=== PATIENT | male | born 1995 | race Caucasian/White ===

== ENCOUNTER 2016-11-04 13:09 | Emergency (ER) ==
[2016-11-04 13:12] VITALS: BP 152/91; TEMP 97.6; BMI 37.3
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
== END 2016-11-04 13:28 | disposition home or self-care (01) ==
LOC: ED 13:09
DX: L02.01 Cutaneous abscess of face (principal)
CPT/HCPCS: 99282

== ENCOUNTER 2016-12-18 22:31 | Emergency (ER) ==
[2016-12-18 22:45] VITALS: TEMP 99.9; BMI 35.6
[2016-12-18 23:03] VITALS: BP 155/95
--- NOTE | 2016-12-18 23:04 | ED.PDOC ---
General ED Provider: Dr. KATIE LUKE Chief Complaint: Dizziness Stated Complaint: Patient states that he has been dizzy for the past two weeks. worse tonight. The dizziness occurs when sitting or standing. Denies any fever or chills, headache behind eyes and at shinto areas. Time Seen by Physician: 23:02 Mode of Arrival: Wheelchair Information Source: Patient Exam Limitations: No limitations Primary Care Provider: VIKKI OTTO Nursing and Triage Documentation Reviewed and Agree: Yes Neurological Complaint Exam - Dizziness Complaint/Exam Last Known Well: 1 week Onset: Gradual Duration: min Symptoms Are: Still present Timing: Intermittent Initial Severity: Moderate Current Severity: Moderate Character: Reports: Head spinning, Lightheaded Aggravating: Reports: None Alleviating: Reports: None Associated Signs and Symptoms: Reports: Nausea, Visual changes. Denies: Vomiting, Short of air, Unsteady gait Cardiac Risk Factors: Reports: None CVA Risk Factors: Reports: None Related Surgical History: Reports: None JVD Present: No Carotid Bruit Present: No Rectal Heme Positive: No Glascow Coma Scale (see protocol): 15 Nystagmus Present: No Gag Reflex Present: No Meningeal Signs Positive: No Focal Weakness: Present: None Focal Sensory Loss: Present: None Gait: Normal Romberg Test Positive: No Babinski Sign: Negative Right, Negative Left Heel to Toe Normal: No Jovany-Hallpike Test Positive: No Differential Diagnoses: Dysrhythmia, Metabolic abnormalities, Vasovagal reaction Quality Indicator For Non-Traumatic Chest Pain/Syncope: EKG Performed Review of Systems - Review Of Systems Constitutional: Reports: No symptoms Eyes: Reports: No symptoms Ears, Nose, Mouth, Throat: Reports: No symptoms Respiratory: Reports: No symptoms Cardiac: Reports: No symptoms, Lightheadedness GI: Reports: No symptoms : Reports: No symptoms Musculoskeletal: Reports: No symptoms Skin: Reports: No symptoms Neurological: Reports: Anxiety Endocrine: Reports: No symptoms Hematologic/Lymphatic: Reports: No symptoms All Other Systems: Reviewed and Negative Past Medical History - Past Medical History Previously Healthy: Yes Endocrine: Reports: None Cardiovascular: Reports: Hypertension Respiratory: Reports: None Hematological: Reports: None Gastrointestinal: Reports: None Genitourinary: Reports: None Neuro/Psych: Reports: Anxiety, Depression Musculoskeletal: Reports: None Cancer: Reports: None - Surgical History General Surgical History: Reports: Tonsillectomy, Orthopedic (left knee break), Other (ear tubes) - Family History Family History: Reports: Unknown - Social History Smoking Status: Never smoker Hx Substance Use: No Alcohol Screening: Occasionally - Immunizations Tetanus Shot up to Date: Yes Physical Exam - Physical Exam Appearance: Ill-appearing, Obese Ill-appearing: Moderate Pain Distress: Severe Eyes: PHILIPPE, EOMI, Conjunctiva clear ENT: Ears normal, Nose normal, Oropharynx normal Neck: Supple Respiratory: Airway patent, Breath sounds clear, Breath sounds equal, Respirations nonlabored Cardiovascular: RRR, Pulses normal, No rub, No murmur GI/: Soft, Nontender, No masses, Bowel sounds normal, No Organomegaly Musculoskeletal: Normal strength, ROM intact, No edema, No calf tenderness Skin: Warm, Dry, Normal color Neurological: Sensation intact, Motor intact, Reflexes intact, Cranial nerves intact, Alert, Oriented Psychiatric: Anxious Interpretation - Radiology Interpretation Radiology Interpretation By: Radiologist Radiology Results: Negative Exam Interpreted: CT Scan (Head ) - EKG Interpretation Time of EKG #1: 00:15 Rate: Normal Rhythm: Sinus Ectopy: None [place]: NL Interpretation: non specific T wave abnormality Critical Care Note - Critical Care Note Total Time (mins): 0 Course - Course Hematology/Chemistry: 12/18/16 23:32 12/18/16 23:32 Orders, Labs, Meds: Lab Review 12/18/16 12/18/16 11:32 23:32 WBC 9.55 RBC 4.85 Hgb 14.9 Hct 39.8 L MCV 82.1 MCH 30.7 MCHC 37.4 H RDW Coeff of Ilana 13.9 Plt Count 228 Immature Gran % (Auto) 0.4 Neut % (Auto) 27.5 Lymph % (Auto) 63.4 H [place] % (Auto) 6.9 Eos % (Auto) 0.4 Baso % (Auto) 1.4 Immature Gran # (Auto) 0.0 Neut # 2.6 Lymph # 6.1 H [place] # 0.7 Eos # 0.0 Baso # 0.1 Sodium 143 Potassium 3.9 Chloride 110 H Carbon Dioxide 24 Anion Gap 12.9 BUN 8 Creatinine 0.89 Estimated GFR (MDRD) 108.00 BUN/Creatinine Ratio 8.98 Glucose 108 H Calcium 9.3 Total Bilirubin 0.94 AST 36 ALT 39 Alkaline Phosphatase 125 Total Protein 8.2 Albumin 4.2 Globulin 4.0 Albumin/Globulin Ratio 1.05 Urine Color Yellow Urine Clarity Clear Urine pH 6.5 Ur Specific [place] 1.015 Urine Protein Negative Urine Glucose (UA) Negative Urine Ketones Negative Urine Blood Negative Urine Nitrite Negative Urine Bilirubin Negative Urine Urobilinogen 0.2 Ur Leukocyte Esterase Negative Urine Opiates Screen Negative Ur Oxycodone Screen Negative Urine Methadone Screen Negative Ur Propoxyphene Screen Negative Ur Barbiturates Screen Negative U Tricyclic Antidepress Negative Ur Phencyclidine Scrn Negative Ur Amphetamine Screen Negative U Methamphetamines Scrn Negative U Benzodiazepines Scrn Negative Urine Cocaine Screen Negative U Cannabinoids Screen Negative Orders Category Date Time Status EKG-(ED ONLY) Stat CARDIO 12/18/16 23:59 Completed ED IV/MEDIPORT/POWERPORT .ONCE EMERGENCY 12/18/16 23:39 Active Orthostatic [ED ORTHOSTATIC VITAL SIGNS] .ONCE EMERGENCY 12/18/16 23:00 Active CBC W/ AUTO DIFF Stat LAB 12/18/16 23:32 Completed COMPREHENSIVE METABOLIC PANEL Stat LAB 12/18/16 23:32 Completed URINALYSIS C & S IF INDICATED Stat LAB 12/18/16 11:32 Completed URINE DRUG SCREEN (RAPID FOR ED) [DRUG SCREEN, URINE, LAB 12/18/16 23:32 Completed RAPID] Stat 0.9 % Sodium Chloride [Saline Flush] MEDS 12/18/16 23:39 Discontinued 1 syr IVF PRN PRN Acetaminophen [Tylenol] MEDS 12/19/16 00:47 Discontinued 1,000 mg PO ONCE STA Ondansetron HCl/Pf [Zofran 4 mg/2 ml] MEDS 12/18/16 23:42 Discontinued 4 mg IVP ONCE STA Sodium Chloride 0.9% [Sodium Chloride] 1,000 ml MEDS 12/18/16 23:[address] HEAD W/O CONTRAST Stat RADS 12/18/16 23:09 Completed Medications Discontinued Medications Generic Name Dose Route Start Last Admin Trade Name Freq PRN Reason Stop Dose Admin Acetaminophen 1,000 mg 12/19/16 00:47 12/19/16 00:58 Tylenol PO 12/19/16 00:48 1,000 mg ONCE STA Administration Sodium Chloride 1,000 mls @ 1,000 mls/hr 12/18/16 23:39 12/18/16 23:54 Sodium Chloride IV 12/19/16 00:38 1,000 mls/hr BOLUS STA Administration Ondansetron HCl 4 mg 12/18/16 23:42 12/18/16 23:54 Zofran 4 Mg/2 Ml IVP 12/18/16 23:43 4 mg ONCE STA Administration Sodium Chloride 1 syr 12/18/16 23:39 Saline Flush IVF PRN PRN To flush IV Vital Signs: Temp Pulse Resp BP Pulse Ox 12/18/16 23:02 92 H 155/95 H 12/18/16 23:01 90 156/85 H 12/18/16 22:35 99.9 F H 92 H 20 150/90 H 97 Departure - Departure Time of Disposition: 00:20 Disposition: HOME SELF-CARE Discharge Problem: Dizziness Instructions: Dizziness (ED) Condition: Fair Pt referred to PMD for follow-up: Yes Additional Instructions: Push fluids Follow up with pcp in 2 days. Rest Allergies/Adverse Reactions: Allergies No Known Allergies Allergy (Verified 11/04/16 13:12) Home Medications: Ambulatory Orders Citalopram Hydrobromide [Celexa] 10 mg PO DAILY 12/18/16 Lorazepam [Ativan] 0.5 mg PO BEDTIME 12/18/16 Disposition Discussed With: Patient, Family
[2016-12-18 23:34] LABS: BASOPHILS # (AUTO) 0.1 K/uL (0-0.2); BASOPHILS % (AUTO) 1.4 % (0.0-3.0); EOSINOPHILS % (AUTO) 0.4 % (0.0-7.0); HEMATOCRIT 39.8 % (42.0-52.0); HEMOGLOBIN 14.9 g/dl (14.0-18.0); IMMATURE GRANULOCYTE % (AUTO) 0.4 % (0.0-5.0); LYMPHOCYTES # (AUTO) 6.1 K/uL (0.60-3.4); LYMPHOCYTES % (AUTO) 63.4 (10.0-50.0); MEAN CORPUSCULAR HEMOGLOBIN 30.7 pg (27.0-31.0); MEAN CORPUSCULAR HGB CONC 37.4 (31.8-35.4); MEAN CORPUSCULAR VOLUME 82.1 fl (80.0-94.0); MONOCYTES # (AUTO) 0.7 K/uL (0.4-2.0); MONOCYTES % (AUTO) 6.9 (0-10); NEUTROPHILS # (AUTO) 2.6 K/ul (2.0-6.9); NEUTROPHILS % (AUTO) 27.5; PLATELET COUNT 228 10^3/uL (140-440); RED BLOOD COUNT 4.85 10^6/ul (4.70-6.10); WHITE BLOOD COUNT 9.55 K/ul (4.2-10.2)
[2016-12-18 23:36] LABS: BILIRUBIN,URINE Negative (NEGATIVE); KETONES,URINE Negative (NEGATIVE); LEUKOCYTE ESTERASE ,URINE Negative (NEGATIVE); NITRITE,URINE Negative (NEGATIVE); PH,URINE 6.5 (5-9); PROTEIN,URINE Negative (NEGATIVE); URINE, BLOOD Negative (NEGATIVE)
[2016-12-18 23:39] LABS: ADD URINE MICROSCOPIC NO
[2016-12-18] MEDS ORDERED: ZOFRAN ODT PO STA (23:39)
[2016-12-18] MEDS ORDERED: SODIUM CHLORIDE 1,000 ML IV STA (23:39)
[2016-12-18] MEDS ORDERED: ZOFRAN 4 MG/2 ML IVP STA (23:42)
--- NOTE | 2016-12-18 23:42 | CT ---
EXAM: CT brain without contrast HISTORY: Dizziness TECHNIQUE: CT of the brain without intravenous contrast FINDINGS: There is no acute hemorrhage midline shift or mass effect. No hydrocephalus or abnormal extra-axial fluid collection. No significant parenchymal attenuation abnormality. The bony cranium appears normal. The visualized paranasal sinuses are clear. Soft tissues without significant abnorm ality. IMPRESSION: 1. CT of the brain within normal limits.
[2016-12-18 23:51] LABS: ALBUMIN 4.2 g/dL (3.4-5.0); ALBUMIN/GLOBULIN RATIO 1.05; ANION GAP 12.9; BILIRUBIN,TOTAL 0.94 mg/dL (0.00-1.20); BUN/CREATININE RATIO 8.98; CALCIUM 9.3 mg/dL (8.2-10.2); CREATININE 0.89 mg/dL (0.60-1.10); POTASSIUM 3.9 mmol/L (3.5-5.1); TOTAL PROTEIN 8.2 g/dL (6.4-8.2)
[2016-12-18 23:53] LABS: COCAIN SCREEN,URINE NEGATIVE (NEGATIVE)
[2016-12-19] MEDS ORDERED: TYLENOL PO STA (00:47)
== END 2016-12-19 01:05 | disposition home or self-care (01) ==
LOC: ED 22:31
DX: R42 Dizziness and giddiness (principal); R51 Headache; I10 Essential (primary) hypertension
CPT/HCPCS: 36415; 80053; 80306; 81001; 85025; 93005; 93010; 96360; 96361; 96375; 99283; 99284

== ENCOUNTER 2017-12-02 12:46 | Emergency (ER) ==
[2017-12-02 12:50] VITALS: BP 152/89; TEMP 97.6; BMI 42.7
--- NOTE | 2017-12-02 13:50 | CT ---
Exam: CT chest without intravenous contrast. Comparison: None available. Reason for exam: Rib pain. FINDINGS: Image interpretation is limited by the lack of intravenous contrast administration. No pneumothorax, pleural effusion, or focal consolidation. The aorta is normal in course and caliber. The heart is not enlarged. Minimally displaced fracture of the right tenth rib. No suspicious appearing osteoblastic or osteoly tic lesions. The vertebral body heights and intervertebral body disc space heights are well maintained. The parti ally imaged upper abdomen is grossly unremarkable. Impression: 1. Minimally displaced fracture of the right tenth rib, although the entirety of the lower ribs are not seen on this examination. 2. Otherwise, no acute imaging findings within the thorax
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
[2017-12-02] MEDS ORDERED: ZOFRAN 4 MG/2 ML IM STA (14:39)
[2017-12-02] MEDS ORDERED: MORPHINE 2 MG/ML SYRINGE IM STA (14:39)
== END 2017-12-02 15:24 | disposition home or self-care (01) ==
LOC: ED 12:46
DX: S22.31XA Fracture of one rib, right side, initial encounter for closed fracture (principal)
CPT/HCPCS: 96372; 99282

== ENCOUNTER 2018-01-14 17:10 | Outpatient (CLI) ==
[2018-01-14 18:15] VITALS: BMI 41.9
== END 2018-01-14 17:11 | disposition left against medical advice (07) ==
LOC: AMBL 17:10
PROVIDERS: ATTEND Family Medicine
DX: S49.92XA Unspecified injury of left shoulder and upper arm, initial encounter (principal); V89.2XXA Person injured in unspecified motor-vehicle accident, traffic, initial encounter

== ENCOUNTER 2018-01-14 18:05 | Emergency (ER) ==
[2018-01-14 18:15] VITALS: BP 157/100; TEMP 99.5; BMI 41.9
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
[2018-01-14] MEDS ORDERED: NORCO 7.5-325 PO STA (18:25)
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
== END 2018-01-14 19:28 | disposition home or self-care (01) ==
LOC: ED 18:05
DX: S40.012A Contusion of left shoulder, initial encounter (principal); V89.2XXA Person injured in unspecified motor-vehicle accident, traffic, initial encounter
CPT/HCPCS: 99284

== ENCOUNTER 2018-01-16 09:39 | Outpatient (CLI) ==
--- NOTE | 2018-01-16 10:50 | DI ---
Exam: Two x-rays of the pelvis. Comparison: CT abdomen pelvis performed 05/26/2015. Reason for exam: Pain in left hip. FINDINGS: The pelvic ring is intact. No significant degenerative disease is seen in either hip. Th e femoral heads articulate with the acetabula. Impression: No acute fracture or malalignment is seen within the pelvis.
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
== END 2018-01-16 09:40 | disposition home or self-care (01) ==
LOC: RAD 09:39
PROVIDERS: ATTEND Family Medicine
DX: M25.552 Pain in left hip (principal)

== ENCOUNTER 2018-06-30 00:32 | Emergency (ER) ==
[2018-06-30 00:42] VITALS: TEMP 99.4; BMI 41.1
[2018-06-30 00:57] VITALS: BP 164/92
--- NOTE | 2018-06-30 01:09 | ED.PDOC ---
General ED Provider: Dr. KATIE LUKE Chief Complaint: Dizziness Stated Complaint: Patient is a 22 year old male who comes to the ER with dizziness, weakness and palpiation. Also complains of chest pain Time Seen by Physician: 01:04 Mode of Arrival: Walk-In Information Source: Patient Primary Care Provider: VIKKI OTTO Nursing and Triage Documentation Reviewed and Agree: Yes Does patient meet sepsis criteria?: No System Inflammatory Response Syndrome: Not Applicable Sepsis Protocol: For patient's 13 years and over: Temp is 96.8 and below OR 101 and greater Pulse >90 BPM Resp >20/minute Acutely Altered Mental Status Are patient's symptoms suggestive of a new infection, such as: -Pneumonia -Skin, Soft Tissue -Endocarditis -UTI -Bone, Joint Infection -Implantable Device -Acute Abdominal Infection -Wound Infection -Meningitis -Blood Stream Catheter Infection -Unknown Neurological Complaint Exam - Dizziness Complaint/Exam Last Known Well: 2 days ago Onset: Gradual Duration: 2 days Symptoms Are: Still present Timing: Intermittent Current Severity: Moderate Character: Reports: Lightheaded, Dizzy Aggravating: Reports: Change in head position Alleviating: Reports: Turning head Associated Signs and Symptoms: Reports: Chest pain Cardiac Risk Factors: Reports: None CVA Risk Factors: Reports: None Related Surgical History: Reports: None JVD Present: No Carotid Bruit Present: No Rectal Heme Positive: No Glascow Coma Scale (see protocol): 15 Review of Systems - Review Of Systems Constitutional: Reports: No symptoms Eyes: Reports: No symptoms Ears, Nose, Mouth, Throat: Reports: No symptoms Respiratory: Reports: No symptoms Cardiac: Reports: Chest pain, Palpitations GI: Reports: No symptoms : Reports: No symptoms Musculoskeletal: Reports: No symptoms Skin: Reports: No symptoms Neurological: Reports: Anxiety, Depressed Endocrine: Reports: No symptoms Hematologic/Lymphatic: Reports: No symptoms All Other Systems: Reviewed and Negative Past Medical History - Past Medical History Previously Healthy: Yes Endocrine: Reports: None Cardiovascular: Reports: Hypertension Respiratory: Reports: None Hematological: Reports: None Gastrointestinal: Reports: None Genitourinary: Reports: None Neuro/Psych: Reports: Anxiety, Depression Musculoskeletal: Reports: None Cancer: Reports: None - Surgical History General Surgical History: Reports: Tonsillectomy, Orthopedic (left knee break), Other (ear tubes) - Family History Family History: Reports: Unknown - Social History Smoking Status: Never smoker Hx Substance Use: No Alcohol Screening: Occasionally - Immunizations Tetanus Shot up to Date: (UNKNOWN) Physical Exam - Physical Exam Appearance: Obese Eyes: PHILIPPE, EOMI, Conjunctiva clear ENT: Ears normal, Nose normal, Oropharynx normal Respiratory: Airway patent, Breath sounds clear, Breath sounds equal, Respirations nonlabored Cardiovascular: Pulses normal, No rub, No murmur, Tachycardia GI/: Soft, Nontender, No masses, Bowel sounds normal, No Organomegaly Musculoskeletal: Normal strength, ROM intact, No edema, No calf tenderness Skin: Warm, Dry, Normal color Neurological: Sensation intact, Motor intact, Reflexes intact, Cranial nerves intact, Alert, Oriented Psychiatric: Affect appropriate, Mood appropriate Interpretation - EKG Interpretation Rate: Tachy Rhythm: Sinus Ectopy: None Atco: NL ST Segment: Other (NOn specific T wave) Interpretation: sinus tachy EKG Comparison: No significant changes Critical Care Note - Critical Care Note Total Time (mins): 0 Course - Course Hematology/Chemistry: 06/30/18 01:02 06/30/18 01:02 Orders, Labs, Meds: Lab Review 06/30/18 06/30/18 01:02 01:02 WBC 10.63 H RBC 5.68 Hgb 16.7 Hct 46.1 MCV 81.2 MCH 29.4 MCHC 36.2 H RDW Coeff of Ilana 13.3 Plt Count 249 Immature Gran % (Auto) 0.8 Neut % (Auto) 60.4 Lymph % (Auto) 29.7 Tift % (Auto) 7.8 Eos % (Auto) 0.8 Baso % (Auto) 0.5 Immature Gran # (Auto) 0.1 Neut # (Auto) 6.4 Lymph # (Auto) 3.2 Tift # (Auto) 0.8 Eos # (Auto) 0.1 Baso # (Auto) 0.1 Sodium 140.8 Potassium 3.93 Chloride 101.6 Carbon Dioxide 29.8 Anion Gap 13.33 BUN 11.0 Creatinine 1.04 Estimated GFR (MDRD) 89.00 BUN/Creatinine Ratio 10.57 Glucose 83.8 Calcium 9.65 Total Bilirubin 0.75 AST 44.3 ALT 25.0 Alkaline Phosphatase 112.9 Total Creatine Kinase 169.5 CK-MB (CK-2) 0.861 CK-MB (CK-2) % 0.5000 Troponin I < 0.012 Total Protein 8.17 Albumin 4.93 Globulin 3.24 Albumin/Globulin Ratio 1.52 Orders Category Date Time Status EKG-(ED ONLY) Stat CARDIO 06/30/18 00:54 Ordered CBC W/ AUTO DIFF Stat LAB 06/30/18 01:02 Completed COMPREHENSIVE METABOLIC PANEL Stat LAB 06/30/18 01:02 Completed CREATINE KINASE Stat LAB 06/30/18 01:02 Completed TROPONIN I Stat LAB 06/30/18 01:02 Completed Vital Signs: Temp Pulse Resp BP Pulse Ox 06/30/18 00:50 107 H 164/92 H 06/30/18 00:49 118 H 142/94 H 06/30/18 00:33 99.4 F 115 H 20 148/96 H 97 Departure - Departure Time of Disposition: 01:54 Disposition: HOME SELF-CARE Discharge Problem: Anxiety Instructions: Anxiety (ED) Condition: Fair Pt referred to PMD for follow-up: Yes IPMP verified?: No Additional Instructions: Push fluids Follow up with PCP in 2 days Allergies/Adverse Reactions: Allergies No Known Allergies Allergy (Verified 06/30/18 00:42) Home Medications: Ambulatory Orders 1 [No Reported Medications] 01/14/18 Disposition Discussed With: Patient, Family
--- NOTE | 2018-06-30 02:28 | CT ---
EXAM: CT scan brain without contrast HISTORY: Dizziness COMPARISON: CT scan brain 12/18/2016 FINDINGS: Contiguous axial images obtained from the skull base to the convexities without contrast u tilizing 5-mm collimation. Sagittal and coronal reconstructions were imaged and reviewed.. The vent ricles and CSF spaces are within normal limits. There are no acute intracranial findings. The visua lized paranasal sinuses and mastoid air cells are clear. IMPRESSION: No acute intracranial findings.
== END 2018-06-30 02:38 | disposition home or self-care (01) ==
LOC: ED 00:32
DX: F41.9 Anxiety disorder, unspecified (principal); I10 Essential (primary) hypertension
CPT/HCPCS: 36415; 80053; 82550; 82553; 84484; 85025; 93005; 93010; 99283